=== PATIENT | female | born 1975 | race Hispanic/Latino ===

== ENCOUNTER → 2019-04-26 | Outpatient (CLI) | payer BC ==
[~2019-04-26] MED LIST: ETON1VAG VG
== END | disposition home or self-care (01) ==
LOC: RAH 08:58
PROVIDERS: ATTEND Physician Assistant Medical
DX: N60.01 Solitary cyst of right breast (principal); N60.02 Solitary cyst of left breast
CPT/HCPCS: 76641; 77066

== ENCOUNTER → 2021-09-09 | Outpatient (CLI) | payer BC | END | disposition home or self-care (01) | LOC: RAH 08:57 | PROVIDERS: ATTEND Physician Assistant Medical | DX: N60.02 Solitary cyst of left breast (principal); N60.01 Solitary cyst of right breast; R92.2 Inconclusive mammogram; R92.1 Mammographic calcification found on diagnostic imaging of breast | CPT/HCPCS: 77066 ==

== ENCOUNTER → 2023-07-22 | Outpatient (CLI) | payer BC ==
[~2023-07-22] MED LIST changes: -ETON1VAG VG; +ETON1VAG14 VG
== END | disposition home or self-care (01) ==
LOC: RAH 14:12
PROVIDERS: ATTEND Nurse Practitioner Obstetrics & Gynecology
DX: N64.4 Mastodynia (principal); R92.333 Mammographic heterogeneous density, bilateral breasts
CPT/HCPCS: 77066